=== PATIENT | male | born 1980 | race Caucasian/White ===

== ENCOUNTER 2020-06-19 10:51 | Outpatient (NON) | payer OTHER, SELFPAY ==
[2020-06-20 21:14] LABS: SARS-CoV-2 RNA PCR Negative
== END 2020-06-19 10:52 ==
LOC: ANHCOVIDDT 10:53
PROVIDERS: Visit Provider Internal Medicine
DX: Z20.828 Contact with and (suspected) exposure to other viral communicable diseases (principal); R43.0 Anosmia; R43.9 Unspecified disturbances of smell and taste; J06.9 Acute upper respiratory infection, unspecified
CPT/HCPCS: 87635; C9803; U0003

== ENCOUNTER 2022-08-09 15:50 | Emergency (ER) | payer OTHER, SELFPAY ==
--- NOTE | ~2022-08-09 | CT_ITS ---
EXAMINATION: CT abdomen pelvis wo con DATE: 08/09/2022 16:38 INDICATION: Kidney stones TECHNIQUE: Computed tomography (CT) of the abdomen and pelvis was performed without intravenous contr ast. Automated exposure control and iterative reconstruction technique were employed. The dose-length product was 309.80 mGy-cm. COMPARISON: 04/20/2011 FINDINGS: Small pneumatocele in the right lower lobe. Mild discoid atelectasis at the lingula. Heart size is no rmal. No pericardial or pleural effusion. Mild diffuse hepatic steatosis. Spleen, pancreas, bilateral adrenal glands are normal. Bilateral nephrolithiasis with at least partially obstructing 3-4 mm ston e at the right ureterovesicular junction with mild right hydronephrosis and periureteral stranding. T here are 3 additional stones in the right kidney and 2 in the left kidney the largest in each kidney measuring 5 mm at lower pole calyces. Bowels including the appendix are normal. Bladder is normal. No free intraperitoneal gas or fluid. No pathologically enlarged abdominal or pelvic lymphadenopathy. M ild thoracic and lumbar spondylosis. IMPRESSION: 1. Bilateral nephrolithiasis with at least partially obstructing 3-4 moderate stone at the right uret erovesicular junction with mild right hydronephrosis. Reviewed, dictated and finalized at location A. [employer] RELEASE MANAGER IMPRESSION: 1. Bilateral nephrolithiasis with at least partially obstructing 3-4 moderate s tone at the right ureterovesicular junction with mild right hydronephrosis.
[2022-08-09 15:52] VITALS: BP 150/99; PULSE 87; RESP 20; TEMP 36.3; O2SAT 100
--- NOTE | 2022-08-09 16:11 | ED.GENADULT ---
HPI - General Adult General Chief complaint: Urogenital-Male Stated complaint: flank pain Time Seen by Provider: 08/09/22 16:11 Source: patient and family Mode of arrival: ambulatory Limitations: no limitations History of Present Illness HPI narrative: Patient is 41 years old white male presents with intermittent right flank pain associated with nausea and vomiting started 5 days ago. Patient went to [place] ED, was discharged with a diagnosis of kidney stone, went back again today and received a pain shot and discharged home, his insisted that he come to our emergency room because we have a urologist. Related Data Allergies Allergy/AdvReac Type Severity Reaction Status Date / Time tree nut Allergy Anaphylactic Verified 08/09/22 15:55 Shock Review of Systems Review of Systems: All systems reviewed & are unremarkable except as noted in HPI and below PMFSH Surgical History Surgical History History of vasectomy Family History Family History Grandparent Hypertension Diabetes mellitus Mother Hypertension Family history of diabetes mellitus in first degree relative Social History Social History Smoking status: Never smoker Alcohol intake: current Exam Narrative: General appearance: Well-developed, well-nourished Skin: Normal color Head: Normocephalic, nontraumatic Eyes: Clear conjunctiva ENT: Oropharynx normal, ears normal, nose normal Neck: Supple, nontender Chest and respiratory: Airway patent, no respiratory distress, no accessory muscle use Heart: Regular rate/rhythm Abdomen: Soft, mild tenderness right flank, no organomegaly, quiet bowel sounds Vascular: Normal peripheral pulses, normal capillary refill. Musculoskeletal: Normal range of motion, nontender back Neurologic: Alert and oriented ?3, CASE OPERATOR is normal as tested, no gross motor deficit Course Vital Signs Vital signs: Vital Signs Temperature 36.3 C L 08/09/22 15:52 Pulse Rate 87 08/09/22 15:52 Respiratory Rate 20 08/09/22 15:52 Blood Pressure 150/99 H 08/09/22 15:52 Pulse Oximetry 100 08/09/22 15:52 Oxygen Delivery Room Air 08/09/22 15:52 Temperature 36.3 C L 08/09/22 15:52 Pulse Rate 87 08/09/22 15:52 Respiratory Rate 20 08/09/22 15:52 Blood Pressure 150/99 H 08/09/22 15:52 Pulse Oximetry 100 08/09/22 15:52 Oxygen Delivery Room Air 08/09/22 15:52 Medical Decision Making MDM Narrative Medical decision making narrative: 41 years old white male presents with right flank pain for the last 5 days, history of kidney stone, He denies any fever or chills. Kidney stone is my concern. CBC, CMP, UA, CT abdomen and pelvis without contrast, IV fluid, IV 0.5 mg of Dilaudid, IV 4 mg of Zofran, Flomax 0.4 mg orally ordered. Work-up showed that the patient had 3 to 4 stones at the right ureterovesical junction, and urine analysis showed no infection. Patient symptoms resolved after Dilaudid 0.5 mg IV, Patient looks comfortable, had a prescription of [place] and Flomax from [place] emergency room today. My plan to discharge him on Toradol 10 mg every 6 hours as needed, and Zofran and to continue home medication. Patient looks comfortable to be discharged to follow-up with urologist as outpatient. Patient agreed Vital Signs Vital Signs: Vital Signs Temperature 36.3 C L 08/09/22 15:52 Pulse Rate 87 08/09/22 15:52 Respiratory Rate 08/09/22 15:52 Blood Pressure 150/99 H 08/09/22 15:52 Pulse Oximetry 100 08/09/22 15:52 Oxygen Delivery Room Air 08/09/22 15
[2022-08-09 16:56] LABS: Appearance Urine Clear (Clear); Basophils Percent Auto 0.5 % (0.2-1.2); Bilirubin Urine Negative (Negative); Blood Urine 3+ (Negative); Color Urine Yellow (Yellow); Eosinophils Absolute Auto 0.2 K/mm3 (0-0.3); Eosinophils Percent Auto 1.9 % (0-4.4); Glucose Urine UA Negative (Negative); Hematocrit 38.6 % (42.0-52.0); Hemoglobin 13.3 g/dL (14.0-18.0); Immature Granulocyte Absolute 0.04 K/mm3 (0.00-0.031); Immature Granulocyte Percent A 0.5 % (0-0.5); Ketones Urine Negative (Negative); Leukocyte Esterase Ur Negative LEU/UL (Negative); Lymphocytes Absolute Auto 1.97 K/mm3 (0.9-3.2); Lymphocytes Percent Auto 25.4 % (18.3-44.2); Mean Corpuscular HGB Conc 34.5 g/dl (32-36); Mean Corpuscular Hemoglobin 29.6 pg (26-34); Mean Platelet Volume 9.5 fl (7.4-10.4); Monocytes Absolute Auto 0.7 K/mm3 (0.1-0.6); Monocytes Percent Auto 8.4 % (2.6-8.5); Neutrophils Absolute Auto 4.9 K/mm3 (1.3-6.7); Neutrophils Percent Auto 63.3 % (45.5-73.1); Nitrate Urine Negative (Negative); Platelet Count Result 241 k/mm3 (150-375); Protein Urine Negative (Negative); Red Blood Count 4.49 M/mm3 (4.6-6.20); Red Cell Distribution Width 12.8 % (11.5-14.5); Urobilinogen Urine 0.2 mg/dL (<2.0); White Blood Count 7.8 K/mm3 (4.5-10.0)
[2022-08-09] MEDS: SODIUM CHLORIDE 0.9% IV 1,000 ML 999 ML IV CONT (17:03)
[2022-08-09 17:04] LABS: RBC Urine 0-2 /hpf (0-2); WBC Urine 0-3 /hpf
[2022-08-09 17:06] LABS: Anion Gap 4 mmol/L (8-16); Blood Urea Nitrogen 17 mg/dL (9-20); Calcium 9.1 mg/dL (8.4-10.2); Carbon Dioxide 28 mmol/L (22-30); Chloride 103 mmol/L (98-107); Estimated CRCL calculation 86 ml/min; Estimated Glomerular Filt Rate > 60; Glucose 88 mg/dL (65-110); Potassium 3.9 mmol/L (3.4-5.0); Sodium 135 mmol/L (137-145)
[2022-08-09] MEDS: HYDROmorphone HCL INJ (*CRX) 1 MG/ML SYR 0.5 MG IV PUSH (17:12)
[2022-08-09] MEDS: ONDANSETRON INJ 4 MG/2 ML VIAL IV PUSH (17:14)
[2022-08-09 17:15] LABS: Add Urine Microscopic? YES
[2022-08-09] MEDS: KETOROLAC 30 MG/ML VIAL (*BKC) IV PUSH (17:43)
== END 2022-08-09 18:00 | disposition home or self-care (01) ==
PROVIDERS: Emergency Provider Emergency Medicine; PCP Family Medicine
DX: N13.2 Hydronephrosis with renal and ureteral calculous obstruction (principal)
CPT/HCPCS: 36415; 74176; 80048; 81001; 85025; 96361; 96374; 96375; 99284; J1170; J1885; J2405; J7030